=== PATIENT | male | born 1935 | race Caucasian/White ===

== ENCOUNTER → 2016-07-17 | Outpatient (CLI) | payer OTHER ==
[~2016-07-17] MED LIST: CENTRUM SILVER1 EAC2 PO; CITRACAL + BON1 EACH PO; COUMADIN 2.5MG2.5 M1 PO; COUMADIN 5 MG TA5 M1 PO; FLOMAX0.4 MG PO; GLUCOSAMINE HC500 MG PO; HYDROCODONE-APA1 TA1 PO; MS CONTIN15 MG PO; PREVACID30 MG PO; PRILOSEC OTC20 MG PO; PROPAFENONE 22225 MG PO; PROPRANOLOL 1010 MG PO; PROSCAR 5MG TABL5 MG PO; ST. JOSEPH ASPI81 M1 PO; TRAMADOL 50 MG50 MG PO; VENTOLIN HFA 1818 GM INH
== END ==
LOC: MRI 11:40
DX: S83.207A Unspecified tear of unspecified meniscus, current injury, left knee, initial encounter (principal); S83.206A Unspecified tear of unspecified meniscus, current injury, right knee, initial encounter; M17.0 Bilateral primary osteoarthritis of knee

== ENCOUNTER 2016-10-10 06:24 | Inpatient (IN) | payer OTHER ==
[2016-09-27 13:30] LABS: HEMATOCRIT 41.2 % (42.0-52.0); MCH 29.2 pg (26.0-34.0); MCHC 34.1 g/dL (28.0-37.0); MCV 85.6 fL (80.0-100.0); RBC 4.81 mil/uL (4.50-6.00); RDW 14.5 % (10.5-14.5); WBC 6.7 thou/uL (4.0-11.0)
[2016-09-27 13:33] LABS: URINE BILIRUBIN NEGATIVE (Negative); URINE BLOOD NEGATIVE (Negative); URINE COLOR YELLOW; URINE GLUCOSE-RANDOM* NEGATIVE (Negative); URINE KETONES NEGATIVE (Negative); URINE LEUKOCYTES-REFLEX NEGATIVE (Negative); URINE PROTEIN (DIPSTICK) NEGATIVE (Negative); URINE UROBILINOGEN 0.2 E.U./dl (0.2-1.0)
[2016-09-27 13:39] LABS: ALBUMIN 3.6 g/dL (3.4-5.0); CALCIUM 8.9 mg/dL (8.5-10.1); POTASSIUM 4.4 mmol/L (3.5-5.1)
[2016-09-27 13:49] LABS: INR 2.8; PROTIME 29.4 Seconds (9.3-11.4)
[~2016-10-10] VITALS: Ht 180.3 cm; Wt 87.5 kg
[2016-10-10] VITALS (7 sets, daily range): BP systolic 101–140; BP diastolic 51–80
--- NOTE | ~2016-10-10 | H ---
[facility] [address] [place] [address] HISTORY AND PHYSICAL Name: MILTON GEORGE Room #: 545-P DIS IN M.R.#: [id number] Admission: 10/10/16 Attend Phys: Eber Herring MD Discharge: 10/13/16 Date of : 39 Report #: [id number] THIS REPORT FOR: //name// For History and Physical, please see office documentation/handwritten note in the patient's medical record. <ELECTRONICALLY SIGNED> By: Eber Herring MD 10/14/16 1736 1524 Eber Herring MD /
--- NOTE | ~2016-10-10 | O ---
[facility] [address] [place] [address] OPERATIVE REPORT Name: MILTON GEORGE Room #: 545-P [facility] IN M.R.#: [id number] Admission: 10/10/16 Attend Phys: Eber Herring MD Discharge: 10/13/16 Date of : 39 Report #: [id number] THIS REPORT FOR: //name// CC: Priyank Park MD [facility] Tyrone Herring DATE OF SERVICE: 10/10/2016 PREOPERATIVE DIAGNOSIS: Right knee degenerative joint disease, severe. POSTOPERATIVE DIAGNOSIS: Right knee degenerative joint disease, severe. PROCEDURE: Right total knee arthroplasty. SURGEON: Eber Herring MD. LAWYER: Mark Kang, nurse practitioner. INDICATIONS FOR LAWYER: During the course of operation, extensive manipulation, retraction, and limb positioning was required. This was afforded to me by my residential living assistant. ANESTHESIA: General. INDICATIONS: See hospital H and P. IMPLANTS UTILIZED: We used a DePuy PFC knee system. We used a cruciate retaining femoral component of size 5 press fit. Size 5 tibial tray with an 8 mm insert and a 41 mm oval dome patella. DESCRIPTION OF PROCEDURE: After adequate general anesthesia had been obtained, the patient's right lower extremity was prepped and draped in the usual meticulous sterile fashion. Limb was exsanguinated with gravity, and tourniquet was inflated to 350 torr. An anterior midline incision was made. SubQ divided sharply. Hemostasis obtained with electrocautery. Medial parapatellar incision was made. Infrapatellar fat pad excised. Medial release performed. The drill was used to drill the distal femur. This hole was enlarged, irrigated, suctioned, and the intramedullary guide placed the full length of the femur. Distal femoral cutting guide pinned to the appropriate height. We set his valgus angle at 7 degrees for him, as he was a valgus aligned patient. The distal femoral cut was then made. The size 5 as the appropriate size for this patient. We marked the distal femur, impacted the cutting guide into position and the anterior, posterior, and chamfer cuts were made. Rongeur was used to remove additional osteophytes. [facility] [address] [place] [address] OPERATIVE REPORT Name: MILTON GEORGE Room #: 545-P DIS IN M.R.#: [id number] Admission: 10/10/16 Attend Phys: Eber Herring MD Discharge: 10/13/16 Date of : 39 Report #: [id number] At this time, the ACL was transected, tibia translated anteriorly, and menisci were excised. Drill was used to drill the central portion of the tibia. This hole was enlarged, irrigated, suctioned, and the intramedullary guide placed the full length of the tibia. The proximal tibial cutting guide placed at appropriate height. Proximal tibia cut was made. We measured the tibia. The size 5 tray gave us the best coverage. We put the trial components in position. With the 8 spacer, we had the best flexion and extension gap, it did have a little bit of tight, laterally in extension. So we released the IT band, this resulted in improved balance. Patella tracked normally. At this time, the patella was measured, cutting guide clamped into place, patellar cut was made. 41 template gave us the best coverage. Pedicles were drilled, trial component put in position. It tracked normally. At this time, tibial tray rotation was marked. Distal femur drilled. Trial components were removed. The tibial keel cuts were made. Knee was irrigated with both pulse lavage and antibiotic irrigation. We placed the bone plugs in the proximal tibia and distal femur. We then vacuum mixed the cement, and when it reached the appropriate consistency, the knee was thoroughly dried, the tibial tray was cemented in to place. Excess cement was removed. The polyethylene was impacted in to place. The femur impacted in to place, and the knee was taken out to 30 degrees of flexion. Uniform compression placed across the components. Patellar button was then cemented into place, and again excess cement was removed. Irrigation was placed in the wound and allowed to rest in the wound until the cement fully cured. When it had done so, the knee was irrigated, dried thoroughly, and inspected. Drains were placed superolaterally both deep and superficial. Retinacular layer closed with combination of interrupted [id number] #1 Vicryl, as well as running #1 Tevdek. SubQ closed with 2-0 Monocryl. Skin closed with lawrence. Sterile compressive dressing was applied. Tourniquet deflated. <ELECTRONICALLY SIGNED> By: Eber Herring MD 10/14/16 1736 1128 1416 Eber Herring MD /harriet
[2016-10-10 09:47] LABS: INR 1.1; PROTIME 11.3 Seconds (9.3-11.4)
[2016-10-11] VITALS: BP 106/59
[2016-10-11 04:00] VITALS: BP 98/52
[2016-10-11 05:53] LABS: HEMATOCRIT 37.6 % (42.0-52.0); HEMOGLOBIN 12.4 gm/dL (14.0-18.0); MCH 28.5 pg (26.0-34.0); MCHC 32.9 g/dL (28.0-37.0); MCV 86.5 fL (80.0-100.0); PLATELET COUNT 179 thou/uL (150-400); RBC 4.35 mil/uL (4.50-6.00); RDW 14.8 % (10.5-14.5); WBC 14.2 thou/uL (4.0-11.0)
[2016-10-11 05:57] LABS: MANUAL DIFF YES
[2016-10-11 06:06] LABS: INR 1.1; PROTIME 11.4 Seconds (9.3-11.4)
[2016-10-11 06:20] LABS: ALBUMIN 2.9 g/dL (3.4-5.0); CALCIUM 8.4 mg/dL (8.5-10.1); CREATININE 1.1 mg/dL (0.7-1.3); POTASSIUM 4.4 mmol/L (3.5-5.1); TOTAL BILIRUBIN 0.4 mg/dL (<0.1-1.0); TOTAL PROTEIN 6.1 g/dL (6.4-8.2)
[2016-10-11 07:32] LABS: ABSOLUTE NEUTROPHILS 11.8 thou/uL (1.4-8.2); TOTAL CELL COUNT 100
[2016-10-11 07:33] LABS: ANISOCYTOSIS 1+
[2016-10-11 09:49] VITALS: BP 91/68
[2016-10-11 16:32] VITALS: BP 88/55
[2016-10-11 20:47] VITALS: BP 120/73
[2016-10-12 04:50] VITALS: BP 123/75
[2016-10-12 05:33] LABS: HEMATOCRIT 37.7 % (42.0-52.0); HEMOGLOBIN 12.7 gm/dL (14.0-18.0); MCH 28.9 pg (26.0-34.0); MCHC 33.6 g/dL (28.0-37.0); MCV 85.9 fL (80.0-100.0); RBC 4.39 mil/uL (4.50-6.00); RDW 15.2 % (10.5-14.5); WBC 9.5 thou/uL (4.0-11.0)
[2016-10-12] MEDS ORDERED: HYDROCODONE-APA1 TA1 PO (06:31)
[2016-10-12 07:06] LABS: INR 1.6; PROTIME 16.4 Seconds (9.3-11.4)
[2016-10-12 16:05] VITALS: BP 114/61
[2016-10-12 19:10] VITALS: BP 128/60
[2016-10-13 04:27] VITALS: BP 121/73
[2016-10-13 06:18] LABS: HEMATOCRIT 35.4 % (42.0-52.0); HEMOGLOBIN 11.9 gm/dL (14.0-18.0); MCH 28.8 pg (26.0-34.0); MCHC 33.7 g/dL (28.0-37.0); MCV 85.6 fL (80.0-100.0); RBC 4.13 mil/uL (4.50-6.00); RDW 14.7 % (10.5-14.5); WBC 8.1 thou/uL (4.0-11.0)
[2016-10-13 06:20] LABS: INR 1.9; PROTIME 19.5 Seconds (9.3-11.4)
[2016-10-13 06:27] LABS: ALBUMIN 2.4 g/dL (3.4-5.0); CALCIUM 8.4 mg/dL (8.5-10.1); CREATININE 1.1 mg/dL (0.7-1.3); MAGNESIUM 1.9 mg/dL (1.8-2.4); POTASSIUM 4.1 mmol/L (3.5-5.1); TOTAL BILIRUBIN 0.4 mg/dL (<0.1-1.0); TOTAL PROTEIN 6.2 g/dL (6.4-8.2)
[2016-10-13 10:46] VITALS: BP 121/73
[2016-10-13 11:32] VITALS: BP 121/73
[2016-10-13] MEDS ORDERED: CLEOCIN HCL150 MG PO (11:45)
[2016-10-13] MEDS ORDERED: COLACE 100 MG100 MG PO (11:46)
[2016-10-13 12:41] VITALS: BP 121/73
[2016-10-13 13:59] VITALS: BP 121/73
== END 2016-10-13 14:05 | disposition home health service (06) | DRG 470 ==
LOC: 5S 06:24 → TBA 06:24 → PRE 10:30 → 5S 13:01 → PRE 14:13 → 5S 10-13 14:05
PROVIDERS: Nurse Practitioner; Orthopaedic Surgery
PROC: 0SRC0J9 Replacement of Right Knee Joint with Synthetic Substitute, Cemented, Open Approach (ICD-10-PCS; principal; 2016-10-10)
DX: M17.11 Unilateral primary osteoarthritis, right knee (principal); E44.0 Moderate protein-calorie malnutrition; I48.91 Unspecified atrial fibrillation; K21.9 Gastro-esophageal reflux disease without esophagitis; N40.0 Benign prostatic hyperplasia without lower urinary tract symptoms; I95.9 Hypotension, unspecified; Z85.828 Personal history of other malignant neoplasm of skin; Z98.52 Vasectomy status; Z90.49 Acquired absence of other specified parts of digestive tract; Z79.01 Long term (current) use of anticoagulants; Z79.82 Long term (current) use of aspirin; Z79.899 Other long term (current) drug therapy; Z68.26 Body mass index [BMI] 26.0-26.9, adult
CPT/HCPCS: 10785; 50010; 50101; 50415; 50612; 50954; 51130; 51225; 51320; 51412; 51771; 52001; 52282; 53000; 53078; 53364; 56525; 56527; 62110; 62900; 70005

== ENCOUNTER → 2019-11-27 | Outpatient (CLI) | payer OTHER ==
[~2019-11-27] MED LIST changes: +CLEOCIN HCL150 MG PO; +COLACE 100 MG100 MG PO
== END ==
LOC: SJCVC 10:58
DX: R94.31 Abnormal electrocardiogram [ECG] [EKG] (principal); I45.4 Nonspecific intraventricular block; I44.7 Left bundle-branch block, unspecified; I48.21 Permanent atrial fibrillation; I10 Essential (primary) hypertension; E78.5 Hyperlipidemia, unspecified; I71.2 Thoracic aortic aneurysm, without rupture; Z79.01 Long term (current) use of anticoagulants

== ENCOUNTER → 2019-12-02 | Outpatient (CLI) | payer OTHER | LOC: SJCVC 12:01 | DX: Z51.81 Encounter for therapeutic drug level monitoring (principal); Z79.01 Long term (current) use of anticoagulants ==

== ENCOUNTER → 2020-06-07 | Outpatient (CLI) | payer OTHER | LOC: SJCVCIMAG 08:28 | PROVIDERS: ATTEND Internal Medicine | DX: I08.8 Other rheumatic multiple valve diseases (principal); I11.9 Hypertensive heart disease without heart failure; R94.31 Abnormal electrocardiogram [ECG] [EKG]; I45.4 Nonspecific intraventricular block; I48.21 Permanent atrial fibrillation; E78.5 Hyperlipidemia, unspecified; I44.7 Left bundle-branch block, unspecified; I71.2 Thoracic aortic aneurysm, without rupture; Z79.01 Long term (current) use of anticoagulants; Z79.899 Other long term (current) drug therapy; Z87.891 Personal history of nicotine dependence ==

== ENCOUNTER → 2020-12-07 | Outpatient (CLI) | payer OTHER | LOC: SJCVC 11:46 | PROVIDERS: ATTEND Internal Medicine | DX: R94.31 Abnormal electrocardiogram [ECG] [EKG] (principal); I45.4 Nonspecific intraventricular block; I48.21 Permanent atrial fibrillation; I10 Essential (primary) hypertension; E78.5 Hyperlipidemia, unspecified; I44.7 Left bundle-branch block, unspecified; I71.2 Thoracic aortic aneurysm, without rupture; E11.9 Type 2 diabetes mellitus without complications; I34.0 Nonrheumatic mitral (valve) insufficiency; Z79.01 Long term (current) use of anticoagulants; Z79.899 Other long term (current) drug therapy; Z87.891 Personal history of nicotine dependence ==

== ENCOUNTER → 2020-12-31 | Outpatient (CLI) | payer OTHER ==
[~2020-12-31] VITALS: Ht 180.3 cm; Wt 90.7 kg
[~2020-12-31] MED LIST changes: +CITRUCEL500 MG PO; +GLUCOSAMINE H1500 MG PO; +INDERAL LA160 MG PO; +MUCINEX600 MG PO; +XARELTO20 MG PO
--- NOTE | 2021-01-04 12:42 | P ---
[facility] [place] [address] PROCEDURE REPORT Name: MILTON GEORGE Room #: REG WILMER Lovell#: [id number] Admission: 12/31/20 Attend Phys: Gunner Hardy Discharge: Date of : 39 Report #: [id number] THIS REPORT FOR: cc: Tyrone Forte MD, Rene P. MD McElhinney, Christian C. MD ~ DOC #: [id number] cc: MD Gunner Payne MD DATE OF SERVICE: 12/31/2020 PROCEDURE PERFORMED: Flexible sigmoidoscopy with polypectomy, tattoo and APC cautery. INDICATIONS FOR PROCEDURE: The patient underwent a colonoscopy on 11/11/2020 for a previous history of colon polyps by myself. Multiple polyps were removed. He had a large 3-4 cm sessile polyp in the distal rectum. I was able to remove a portion of it at that time, but due to the nature of the polyp the plan was to wait for biopsy results and then proceed potentially with removal at a later date. 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 I discussed options with the patient. The plan is to proceed with a flexible sigmoidoscopy today and try to remove the polyp as well as treat with APC cautery. DESCRIPTION OF PROCEDURE: The risks and benefits of the procedure were explained to the patient, those risks including but not limited to bleeding, perforation and the risk of sedation. He understood these risks and gave informed consent. Sedation was given using propofol per anesthesia. Next, a digital rectal exam was initially performed, which was normal. Next, using a standard Olympus colonoscope, the scope was placed in the patient's anus and advanced under direct vision to the distal sigmoid colon. The distal sigmoid colon was normal. The proximal and mid rectum were normal. Once again, a large polyp was noted in the very distal rectum, again this was approximately 3-4 cm in size. It was sessile. It comes very close to the dentate margin. I then proceeded with removing parts of the polyp that I could with the snare cautery, also injected the base of it with sterile saline to lift the polyp. I was able to remove approximately half to 75% of the polyp by snare cautery. The remainder was treated with APC cautery. I also proceeded with tattooing the edges of the polyp today. When complete, there was no evidence of bleeding after treatment. At this point, the scope was then withdrawn and the procedure terminated. The patient tolerated the procedure well. IMPRESSION: Large sessile polyp, distal rectum, treated with snare cautery, polypectomy, APC cautery and edges were tattooed today. [address] [address] PROCEDURE REPORT Name: DORISMILTON Niki Room #: REG WILMER Lovell#: [id number] Admission: 12/31/20 Attend Phys: Gunner Hardy Discharge: Date of : 39 Report #: [id number] RECOMMENDATIONS: 1. Await biopsy results. 2. If no evidence of malignancy on biopsies today, plan will be to repeat flexible sigmoidoscopy in approximately 3 months' time and continue further treatment if needed of remaining polyp tissue. Thank you for allowing me to participate in his care. Gunner Murrell MD CCM/GILMAR <ELECTRONICALLY SIGNED> By: Gunner Murrell MD 01/04/21 1242 0851 52 Gunner Murrell MD /harriet
--- NOTE | 2021-01-04 17:07 | PATH ---
[facility] [address] [place] [address] PATHOLOGY RPT PROCEDURE Name: MYNOR ORTIZ Room #: REG [facility] Jaime.#: [id number] Admission: 12/31/20 Date of : 39 Discharge: Report #: [id number] Path Case #: [id number] [facility] Accession Number: [id number] . 01 Material submitted: . rectum - RECTAL POLYP . 01 Clinical history: . FLEX SIGMOIDOSCOPY HISTORY OF POLYPS/HISTORY FOCAL HIGH GRADE DYSPLASIA . 01 Diagnosis: Colonic mucosa "rectal polyp", polypectomy: - Tubulovillous adenoma. - No obvious high-grade dysplasia or malignancy in sections examined. (SHA:pit; 01/04/2021) QTP 01/04/2021 1413 Local . 01 Electronically signed: . Ej [place] MD, Pathologist NPI- [id number] . 01 Gross description: . The specimen is received in formalin, labeled "Mynor Ortiz, rectal polyp". Received are multiple segments of pale tran to light tran tissue ranging in size from 0.2-0.9 cm in maximum dimensions. The surgical margin of the largest segment is inked and the segment is bisected. The specimen is submitted entirely in cassettes A1 through A4. (CAA; 01/03/2021) QA/QA 01/03/2021 1340 Local . 01 Pathologist provided ICD-10: D12.8 . 01 CPT . 662344 Specimen Comment: A courtesy copy of this report has been sent to [phone] Specimen Comment: [phone] Specimen Comment: Report sent to / DR CARLTON Performed at: [address], [place] [id number] MD Ej [place] MD Phone: [phone]
== END | disposition home or self-care (01) ==
LOC: GI 07:29
PROVIDERS: ATTEND Specialist
DX: Z09 Encounter for follow-up examination after completed treatment for conditions other than malignant neoplasm (principal); Z86.010 Personal history of colon polyps; D12.8 Benign neoplasm of rectum; I10 Essential (primary) hypertension; I48.91 Unspecified atrial fibrillation; N40.0 Benign prostatic hyperplasia without lower urinary tract symptoms; K21.9 Gastro-esophageal reflux disease without esophagitis; Z98.890 Other specified postprocedural states; Z79.899 Other long term (current) drug therapy; Z87.891 Personal history of nicotine dependence; Z90.49 Acquired absence of other specified parts of digestive tract; Z98.52 Vasectomy status
CPT/HCPCS: 62110; 62900

== ENCOUNTER → 2021-04-18 | Outpatient (CLI) | payer OTHER | LOC: LAB 08:07 | PROVIDERS: ATTEND Student in an Organized Health Care Education/Training Program | DX: Z01.812 Encounter for preprocedural laboratory examination (principal); Z20.822 Contact with and (suspected) exposure to COVID-19 ==

== ENCOUNTER → 2021-04-20 | Outpatient (CLI) | payer OTHER ==
[~2021-04-20] VITALS: Ht 177.8 cm; Wt 92.5 kg
--- NOTE | 2021-04-20 16:17 | P ---
[facility] [place] [address] [place] [address] PROCEDURE REPORT Name: MILTON GEORGE Room #: REG CLLizett Lovell#: [id number] Admission: 04/20/21 Attend Phys: Gunner Hardy Discharge: Date of : 39 Report #: [id number] THIS REPORT FOR: cc: Tyrone Forte MD, Rene P. MD McElhinney, Christian C. MD ~ cc: Tyrone Forte MD DATE OF SERVICE: 04/20/2021 PROCEDURE PERFORMED: Flexible sigmoidoscopy with snare polypectomy and APC cautery. HISTORY OF PRESENT ILLNESS: The patient is an 86-year-old male who underwent a colonoscopy on 11/21/2020 for previous history of colon polyps by myself. Multiple polyps were removed. He had a large 3-4 cm sessile polyp in the distal rectum. I was able to remove a portion of it at that time, but due to the nature of the polyp, the plan was to wait for biopsy results. 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 I discussed options with the patient and the plan was to proceed with a repeat flexible sigmoidoscopy, which was performed on 12/31/2020. At that time, the large rectal polyp was removed in a piecemeal fashion as best possible with snare cautery and then later treated with APC cautery and the edges were tattooed. He now is here for followup. Denies any symptoms in general. Plan is for flexible sigmoidoscopy for further evaluation of previous large polyp site. DESCRIPTION OF PROCEDURE: The risks and benefits of the procedure were explained to the patient, those risks including but not limited to bleeding, perforation and the risk of sedation. He understood these risks and gave informed consent. Sedation was given using propofol per Anesthesia. Next, digital rectal exam was initially performed, which was normal. Next, using a standard Olympus colonoscope, the scope was placed in the patient's anus and advanced under direct vision into the rectum. There was a moderate amount of stool. This was removed both with a López net and with washings and aspirations. At this point, I was able to well visualize the previous polypectomy site and tattoo area. There was approximately 1.5 cm to 2 cm of adenomatous-type polyps tissue in the very distal rectum in between the tattoo. I then proceeded with removing what I could by snare cautery. The rest was treated with APC cautery. The polyp comes close to the dentate line. On retroflexion, small internal hemorrhoids were again noted. At this point, the scope was then withdrawn and the procedure terminated. The patient tolerated the procedure well. IMPRESSION: Distal rectal polyp as described above. RECOMMENDATIONS: [facility] [address] [place] [address] PROCEDURE REPORT Name: DORISMILTON GAVIN Room #: REG WILMER Lovell#: [id number] Admission: 04/20/21 Attend Phys: Gunner Hardy Discharge: Date of : 39 Report #: [id number] 1. Await biopsy results. 2. We will discuss options with the patient, would likely recommend continuing followup flexible sigmoidoscopies with retreatment as necessary. Another option would be to consider possible consultation with colorectal surgery to see if an excisional biopsy could be performed transanally. Thank you for allowing me to participate in his care. <ELECTRONICALLY SIGNED> By: Gunner Murrell MD 04/20/21 1617 0922 1305 Gunner Murrell MD /nt
--- NOTE | 2021-04-22 12:07 | PATH ---
[facility] [address] [place] [address] PATHOLOGY RPT PROCEDURE Name: MYNOR ORTIZ Room #: REG CLI MKeylaR.#: [id number] Admission: 04/20/21 Date of : 39 Discharge: Report #: [id number] Path Case #: [id number] [facility] Accession Number: [id number] . 01 Material submitted: . rectum - RECTAL POLYP- HX OF ORADENOMETOUS POLYP . 01 Clinical history: . FLEX SIGMOIDOSCOPY HX OF POLYPS . 02 Diagnosis: Colonic mucosa (rectal polyp): - Tubular adenoma is identified. LBQ 04/22/2021 1121 Local . 02 Comment: We find no evidence of high grade dysplasia or of malignancy. (SWK/db; 04/22/2021) . 02 Electronically signed: . Jasbir Diehl MD, Pathologist NPI- [id number] . 01 Gross description: . The specimen is submitted in formalin, labeled "Mynor Ortiz, rectal polyp". Received are 3 segments of pale tran tissue ranging in size from 0.3 to 0.9 cm in maximum dimensions. The surgical margin of the largest segment is inked and the specimen is bisected. The specimen is submitted entirely in cassette A1. ([facility]; 04/21/2021) NRI/NRI 04/21/2021 1502 Local . 02 Pathologist provided ICD-10: D12.8 . 02 CPT . 998793 Specimen Comment: A courtesy copy of this report has been sent to [phone] Specimen Comment: [phone] Specimen Comment: Report sent to / DR CARLTON Performed at: 01 [facility] [address] [place] [id number] MD Ej [place] MD Phone: [phone] Performed at: [address] [address] PATHOLOGY RPT PROCEDURE Name: MYNOR ORTIZ Room #: REG CLI [facility].#: [id number] Admission: 04/20/21 Date of : 39 Discharge: Report #: [id number] Path Case #: [id number] [address] [id number] MD Jasbir Diehl MD Phone: [phone]
== END | disposition home or self-care (01) ==
LOC: GI
PROVIDERS: ATTEND Specialist
DX: Z09 Encounter for follow-up examination after completed treatment for conditions other than malignant neoplasm (principal); Z86.010 Personal history of colon polyps; D12.8 Benign neoplasm of rectum; K64.8 Other hemorrhoids; K21.9 Gastro-esophageal reflux disease without esophagitis; N40.0 Benign prostatic hyperplasia without lower urinary tract symptoms; I48.91 Unspecified atrial fibrillation; Z98.890 Other specified postprocedural states; Z79.899 Other long term (current) drug therapy; Z87.891 Personal history of nicotine dependence; Z85.828 Personal history of other malignant neoplasm of skin; Z90.49 Acquired absence of other specified parts of digestive tract; Z98.52 Vasectomy status; Z96.651 Presence of right artificial knee joint
CPT/HCPCS: 62110; 62900

== ENCOUNTER → 2021-06-08 | Outpatient (CLI) | payer OTHER | LOC: SJCVC 10:54 | PROVIDERS: ATTEND Internal Medicine | DX: R94.31 Abnormal electrocardiogram [ECG] [EKG] (principal); I48.21 Permanent atrial fibrillation; I10 Essential (primary) hypertension; E78.5 Hyperlipidemia, unspecified; I44.7 Left bundle-branch block, unspecified; Z79.01 Long term (current) use of anticoagulants; I71.2 Thoracic aortic aneurysm, without rupture; Z98.890 Other specified postprocedural states; Z79.899 Other long term (current) drug therapy; Z87.891 Personal history of nicotine dependence ==